=== PATIENT | female | born 1960 | race Caucasian/White ===

== ENCOUNTER 2017-02-18 18:03 | Emergency (ER) | payer BC ==
[2017-02-18] MEDS ORDERED: Sodium Chloride 0.9% 50 ML SDV IV ONE (18:04)
[2017-02-18] MEDS ORDERED: Iopamidol 612 MG/ML 100 ML Bottle IV ONE (18:04)
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
[2017-02-18] MEDS ORDERED: Ondansetron 4 MG/2 ML SDV IVPUSH ONE (18:27)
[2017-02-18] MEDS ORDERED: Sodium Chloride 0.9% 1,000 ML IV ONE (18:27)
[2017-02-18] MEDS ORDERED: HYDROmorphone 1 MG/ML Syringe IVPUSH ONE ×3 (18:27→19:16)
[2017-02-18] MEDS ORDERED: HYDROmorphone 1 MG/ML Syringe ONE (18:29)
[2017-02-18] MEDS ORDERED: Sodium Chloride 0.9% 1,000 ML ONE (18:29)
[2017-02-18] MEDS ORDERED: HYDROmorphone 1 MG/ML Syringe IM ONE (19:20)
[2017-02-18 19:28] LABS: CHLORIDE,CL 103 mmol/L (98-115); SODIUM,NA 138 mmol/L (136-145)
[2017-02-18 20:11] VITALS: BP 133/65
[2017-02-19] MEDS ORDERED: Iopamidol 612 MG/ML 100 ML Bottle IVPUSH ONE (16:22)
[2017-02-19] MEDS ORDERED: Sodium Chloride 0.9% 50 ML SDV FLUSH SCH (16:30)
== END 2017-02-18 21:00 ==
LOC: KA.ED 18:03
DX: S22.41XA Multiple fractures of ribs, right side, initial encounter for closed fracture (principal); F17.210 Nicotine dependence, cigarettes, uncomplicated; Z79.899 Other long term (current) drug therapy; V86.59XA Driver of other special all-terrain or other off-road motor vehicle injured in nontraffic accident, initial encounter
CPT/HCPCS: 36415; 71010; 71260; 74177; 80053; 81001; 82550; 82553; 85025; 85610; 85730; 96361; 96374; 96375; 96376; 99285; J1170; J2405; J7030; 93005; Q9967